=== PATIENT | female | born 1975 | race Caucasian/White ===

== ENCOUNTER 2019-10-05 15:01 | Emergency (ER) | payer BC ==
--- NOTE | 2019-10-05 15:20 | EDM.PDOC ---
ED HPI GENERAL MEDICAL PROBLEM - General Chief Complaint: Lower Extremity Injury/Pain Stated Complaint: POSSIBLE BROKEN TOE RT FOOT Time Seen by Provider: 10/05/19 15:10 Source of Information: Reports: Patient - History of Present Illness INITIAL COMMENTS - FREE TEXT/NARRATIVE: history of present illness: 44-year-old female presenting with right small toe pain after banging her foot into a box just prior to arrival here. She reports this is happened to her before and she has had prior foot injuries and toe fractures. She was just walking with her sandals when she hit her small toe on the corner of a box. She feels that the toe is pointing laterally now more than usual. She is concerned she may have fractured this toe. Blood pressure is elevated on arrival here, however she reports she is in pain and her blood pressure is always elevated whenever she is in a physician's office or hospital Review of systems: As per history of present illness and below otherwise all systems reviewed and negative. Past medical history: As per history of present illness and as reviewed below otherwise noncontributory. Surgical history: As per history of present illness and as reviewed below otherwise noncontributory. Social history: No reported history of drug or alcohol abuse. No tobacco, alcohol socially only Family history: As per history of present illness and as reviewed below otherwise noncontributory. Physical exam: GEN: no acute distress, well appearing HEENT: Atraumatic, normocephalic, mucous membranes moist, Neck: supple, nontender, trachea midline. Lungs: No respiratory distress. Heart: RRR Extremities: Tender to palpation right small toe, toe does appear to be slightly laterally deviated when compared with alignment of the rest of toes. Palpable fracture during examination. Normal cap refill time. Remainder of foot is nontender including hallux and fifth metatarsal. No ankle or proximal fibular tenderness. Left foot and lower extremity unremarkable. Neurovascularly intact. Neuro: Awake, alert, oriented. Neuro Exam nonfocal. Skin: warm, dry, no lesions, no open wound. Diagnostics: Right foot x-ray Therapeutics: Declined pain medications MDM: Impression: Right foot fracture Plan: [] Definitive disposition and diagnosis as appropriate pending reevaluation and review of above. Right Toe-Little Pain Score (Numeric/FACES): 5 - Related Data Allergies Allergy/AdvReac Type Severity Reaction Status Date / Time acetaminophen [From Vicodin] Allergy Intermediate Hives Verified 10/05/19 15:19 hydrocodone [From Vicodin] Allergy Intermediate Hives Verified 10/05/19 15:19 amoxicillin Allergy Hives Verified 10/05/19 15:19 Home Meds: Home Meds . [No Known Home Meds] 10/05/19 [History] Review of Systems - Review of Systems Review Of Systems: See Below (See HPI) ED EXAM, GENERAL - Physical Exam Exam: See Below (See HPI) Course - Vital Signs Text/Narrative:: X-ray of the right foot confirms fracture of the right proximal phalanx of the small/fifth toe. Mildly displaced. We will erwin tape in place in hard soled shoe. Discussed plan of care with patient including follow-up with orthopedics or podiatry, whoever can see her first. She will need to keep the erwin taping on and use the hard soled shoe until cleared by orthopedics/podiatry. DME: Type: Right foot hard soled/postop/cast shoe Reason: Right small toe fracture Benefit to patient: Immobilization Length of use: Until cleared by Ortho/podiatry Last Recorded V/S: Last Vital Signs Temp 98.2 F 10/05/19 15:14 Pulse 114 H 10/05/19 15:14 Resp 18 10/05/19 15:14 BP 184/125 H 10/05/19 15:14 Pulse Ox 98 10/05/19 15:14 - Orders/Labs/Meds Orders: Active Orders 24 hr Category Date Time Status Foot 2V Rt [CR] Stat Exams 10/05/19 15:11 Taken DME for Discharge [COMM] Stat Oth 10/05/19 16:06 Ordered - Re-Assessments/Exams Free Text/Narrative Re-Assessment/Exam: 10/05/19 16:10 Discussed x-ray results with the patient and need for follow-up outpatient as well as immobilization. She voiced understanding and agrees with the plan. Departure - Departure Time of Disposition: 16:10 Disposition: Home, Self-Care 01 Clinical Impression: Closed fracture of phalanx of right fifth toe Qualifiers: Encounter type: initial encounter Qualified Code(s): S92.501A - Displaced unspecified fracture of right lesser toe(s), initial encounter for closed fracture - Discharge Information Instructions: Toe Fracture, [id number] Referrals: Kyra Garrido, [facility] [Primary Care Provider] - Ramiro Kern DPM [Physician] - 2 Days Forms: ED Department Discharge Additional Instructions: You have a fracture of your right large toe. Please keep the erwin taping on the toes and use the hard soled shoe whenever bearing weight on the foot. Ice to the area 3-4 times a day for 20 minutes at a time. You may take Tylenol or ibuprofen for pain control. Please follow-up with the orthopedic clinic or the soft crab shedder listed below as soon as possible for further evaluation and recheck. The following information is given to patients seen in the emergency department who are being discharged to home. This information is to outline your options for follow-up care. We provide all patients seen in our emergency department with a follow-up referral. The need for follow-up, as well as the timing and circumstances, are variable depending upon the specifics of your emergency department visit. If you don't have a primary care physician on staff, we will provide you with a referral. We always advise you to contact your personal physician following an emergency department visit to inform them of the circumstance of the visit and for follow-up with them and/or the need for any referrals to a consulting specialist. The emergency department will also refer you to a specialist when appropriate. This referral assures that you have the opportunity for follow-up care with a specialist. All of these measure are taken in an effort to provide you with optimal care, which includes your follow-up. Under all circumstances we always encourage you to contact your private physician who remains a resource for coordinating your care. When calling for follow-up care, please make the office aware that this follow-up is from your recent emergency room visit. If for any reason you are refused follow-up, please contact the [facility] Emergency Department at and asked to speak to the emergency department charge nurse. [facility] Professional Building [address] [place] [address], [address] [place] [address] Sepsis Event Note (ED) - Focused Exam Vital Signs: Vital Signs Temp Pulse Resp BP Pulse Ox 10/05/19 15:14 98.2 F 114 H 18 184/125 H 98 - My Orders Last 24 Hours: My Active Orders 10/05/19 15:11 Foot 2V Rt [CR] Stat 10/05/19 16:06 DME for Discharge [COMM] Stat - Assessment/Plan Last 24 Hours: My Active Orders 10/05/19 15:11 Foot 2V Rt [CR] Stat 10/05/19 16:06 DME for Discharge [COMM] Stat
--- NOTE | 2019-10-05 16:19 | CR ---
Right foot: 2 views of the right foot were obtained. Fracture is identified within the proximal phalanx of the right fifth toe. Minimal displacement is seen. Small plantar spur is noted. No additional fracture or other abnormality is appreciated. Impression: 1. Minimally displaced fracture involving the proximal phalanx of the right fifth toe. 2. Small plantar spur. Diagnostic code #3 Study was dictated in MDT
== END 2019-10-05 16:34 | disposition home or self-care (01) ==
LOC: MW.ED 15:01
DX: S92.511A Displaced fracture of proximal phalanx of right lesser toe(s), initial encounter for closed fracture (principal); Z88.6 Allergy status to analgesic agent; Z88.5 Allergy status to narcotic agent; Z88.1 Allergy status to other antibiotic agents; W22.8XXA Striking against or struck by other objects, initial encounter; Y93.01 Activity, walking, marching and hiking
CPT/HCPCS: 73620-26-RT; 73620-RT; 99283